=== PATIENT | female | born 1945 | race Hispanic/Latino ===

== ENCOUNTER → 2019-11-11 | Outpatient (CLI) | payer OTHER | END | disposition home or self-care (01) | LOC: RAH 10:10 | PROVIDERS: ATTEND Internal Medicine Cardiovascular Disease | DX: Z13.6 Encounter for screening for cardiovascular disorders (principal) | CPT/HCPCS: 75571 ==

== ENCOUNTER → 2021-09-13 | Outpatient (CLI) | payer MEDICARE ==
[~2021-09-13] MED LIST: ALEN70TA80 PO; AMLO-257 PO; ATOR10TA69 PO; ESCI-8 PO; LEVO75CA5 PO; LORA2TAB80 PO; OMEP40CA21 PO
[2021-09-13 16:03] LABS: AMYLASE 73 U/L (25-115); GAMMA GLUTAMYL TRANSFERASE 1 U/L (5-85); LIPASE 216 U/L (114-286)
[2021-09-13 16:08] LABS: ALBUMIN 3.5 g/dL (3.5-5.0); BILIRUBIN,DIRECT 0.1 mg/dL (0.0-0.3); BILIRUBIN,TOTAL 0.3 mg/dL (0.2-1.0); TOTAL PROTEIN, SERUM 8.5 g/dL (6.0-8.3)
== END | disposition home or self-care (01) ==
LOC: LAB 15:23
PROVIDERS: ATTEND Internal Medicine
DX: K83.8 Other specified diseases of biliary tract (principal); K31.89 Other diseases of stomach and duodenum; R10.12 Left upper quadrant pain; R93.5 Abnormal findings on diagnostic imaging of other abdominal regions, including retroperitoneum
CPT/HCPCS: 36415; 80076; 82150; 82977; 83690

== ENCOUNTER 2021-09-17 08:27 | Day surgery (SDC) | payer MEDICARE ==
[2021-09-17] VITALS (7 sets, daily range): BP systolic 102–124; BP diastolic 48–70
[~2021-09-17] VITALS: Ht 154.9 cm; Wt 49.9 kg
[~2021-09-17 08:27] MED LIST changes: +0.9%NACL 1000ML 1,000 ML IV ONE; -ALEN70TA80 PO; -AMLO-257 PO; -ATOR10TA69 PO; -ESCI-8 PO; -LEVO75CA5 PO; -LORA2TAB80 PO; -OMEP40CA21 PO
[2021-09-17] MEDS ORDERED: ALEN70TA80 PO (10:44)
[2021-09-17] MEDS ORDERED: LORA2TAB80 PO (10:44)
[2021-09-17] MEDS ORDERED: OMEP40CA21 PO (10:44)
[2021-09-17] MEDS ORDERED: ESCI-8 PO (10:44)
[2021-09-17] MEDS ORDERED: AMLO-257 PO (10:44)
[2021-09-17] MEDS ORDERED: ATOR10TA69 PO (10:44)
[2021-09-17] MEDS ORDERED: LEVO75CA5 PO (10:44)
[2021-09-17] MEDS ORDERED: PROPOFOL 10 MG/ML 20ML VIAL IV ONE (12:00)
== END 2021-09-17 13:20 | disposition home or self-care (01) ==
LOC: DAH 08:27 → ENDO 08:27
PROVIDERS: ATTEND Internal Medicine
DX: R10.12 Left upper quadrant pain (principal); R63.4 Abnormal weight loss; K31.89 Other diseases of stomach and duodenum; K83.8 Other specified diseases of biliary tract; R93.5 Abnormal findings on diagnostic imaging of other abdominal regions, including retroperitoneum; G31.84 Mild cognitive impairment of uncertain or unknown etiology; K30 Functional dyspepsia; Z86.010 Personal history of colon polyps; K76.0 Fatty (change of) liver, not elsewhere classified; K57.30 Diverticulosis of large intestine without perforation or abscess without bleeding; I10 Essential (primary) hypertension; E78.5 Hyperlipidemia, unspecified; E03.9 Hypothyroidism, unspecified; Z90.49 Acquired absence of other specified parts of digestive tract; Z79.82 Long term (current) use of aspirin; Z79.899 Other long term (current) drug therapy; Z20.822 Contact with and (suspected) exposure to COVID-19
CPT/HCPCS: 43237; 43239; 87635; 88305; 88342; 93005; A4215 ×2; A4221; A4222; A4223; A4606; A4620; A4663; C9803; J2704; J7030